=== PATIENT | male | born 1995 | race Caucasian/White ===

== ENCOUNTER 2018-02-16 08:00 | Emergency (ER) | payer OTHER ==
[2018-02-16 08:04] VITALS: BP 114/58; PULSE 70; RESP 20; TEMP 98
--- NOTE | 2018-02-16 08:18 | ED ---
General Adult HPI - General Chief complaint: Upper Respiratory Infection Stated complaint: chest pressure, fever, coughing Time Seen by Provider: 02/16/18 08:07 Source: patient, RN notes reviewed Mode of arrival: ambulatory Limitations: no limitations - History of Present Illness Initial comments: Patient 22-year-old male presented to the emergency room today with a chief complaint of cough congestion over the last 3 days. He doesn't to positive sputum production it's been green in color. Patient states that he does have a history of exercise-induced asthma. States he does use an inhaler occasionally. He does admit that he had some increased tightness to his chest this morning. Patient admits that he felt nauseous and had an episode of vomiting the other day. Patient does admit to increased sinus congestion and rhinorrhea. Patient mitts to a temperature of 102F yesterday. States he took his temp this morning and was normal. Denies any other complaints or symptoms currently. Patient denies any recent fever, chills, shortness of breath, back pain, abdominal pain, numbness or tingling, headaches or visual changes, or any other complaints. - Related Data Previous Rx's Medication Instructions Recorded Albuterol Inhaler [Ventolin Hfa 1 - 2 puff INHALATION Q4-6H PRN #1 02/16/18 Inhaler] inhaler Allergies Allergy/AdvReac Type Severity Reaction Status Date / Time No Known Allergies Allergy Verified 02/16/18 08:25 Review of Systems ROS Statement: Those systems with pertinent positive or pertinent negative responses have been documented in the HPI. ROS Other: All systems not noted in ROS Statement are negative. Past Medical History Past Medical History: Asthma History of Any Multi-Drug Resistant Organisms: None Reported Past Surgical History: No Surgical Hx Reported Additional Past Surgical History / Comment(s): oral surgery Past Psychological History: Anxiety, Bipolar, Depression Smoking Status: Current every day smoker Past Alcohol Use History: Rare Past Drug Use History: Marijuana General Exam - General Exam Comments Initial Comments: General: The patient is awake and alert, in no distress, and does not appear acutely ill. Eye: Extra-ocular movements are intact. No nystagmus. There is normal conjunctiva bilaterally. No signs of icterus. Ears, nose, mouth and throat: There are moist mucous membranes and no oral lesions. Neck: The neck is supple, there is no tenderness or JVD. Cardiovascular: There is a regular rate and rhythm. No murmur, rub or gallop is appreciated. Respiratory: Lungs are clear to auscultation, respirations are non-labored, breath sounds are equal. No wheezes, stridor, rales, or rhonchi. Musculoskeletal: Normal ROM, no tenderness. Sensation intact. Neurological: A&O x 3. CN II-XII intact, There are no obvious motor or sensory deficits. Coordination appears grossly intact. Speech is normal. Skin: Skin is warm and dry and no rashes or lesions are noted. Psychiatric: Cooperative, appropriate mood & affect, normal judgment. Limitations: no limitations Course Vital Signs 02/16/18 08:02 Temperature 98.0 F Pulse Rate 70 Respiratory 20 Rate Blood Pressure 114/58 O2 Sat by Pulse 100 Oximetry Medical Decision Making - Medical Decision Making Chest x-ray negative for any sign of pneumonia. Results were discussed with patient. Patient will be treated for bronchitis continue albuterol and given dose of steroids here in the emergency room at [facility]. Patient advised follow-up the family doctor next 2 days if symptoms are not improving. About returning if symptoms increase or worsen. Disposition Clinical Impression: Acute bronchitis Disposition: HOME SELF-CARE Condition: Good Instructions: Acute Bronchitis (ED) Additional Instructions: Please use medication as discussed. Please follow-up with family doctor in the next 2 days of symptoms have not improved. Please return to emergency room if the symptoms increase or worsen or for any other concerns. Prescriptions: Albuterol Inhaler [Ventolin Hfa Inhaler] 1 - 2 puff INHALATION Q4-6H PRN #1 inhaler PRN Reason: Cough Is patient prescribed a controlled substance at d/c from ED?: No Referrals: None,Stated [Primary Care Provider] - 1-2 days Time of Disposition: 08:48
--- NOTE | 2018-02-16 08:36 | XR ---
EXAMINATION TYPE: XR chest 2V DATE OF EXAM: 02/16/2018 COMPARISON: Chest x-ray May 13, 2016. HISTORY: Cough and congestion today. TECHNIQUE: Frontal and lateral views of the chest are obtained. FINDINGS: There is no focal air space opacity, pleural effusion, or pneumothorax seen. The cardiac silhouette size is within normal limits. The osseous structures are intact. IMPRESSION: No acute pulmonary process. No significant change from prior.
[2018-02-16] MEDS ORDERED: DEXAMETHASONE SOD PHOSPHATE 10 MG/ML 1 ML VIAL PO STA (08:48)
== END 2018-02-16 09:00 | disposition home or self-care (01) ==
LOC: EC 08:00
DX: J20.9 Acute bronchitis, unspecified (principal); F17.200 Nicotine dependence, unspecified, uncomplicated
CPT/HCPCS: 71046; 99283; J1100